=== PATIENT | female | born 1960 | race Caucasian/White ===

== ENCOUNTER → 2019-12-11 10:51 | Outpatient (BNVA) | payer SELFPAY | PROVIDERS: Family Provider Nurse Practitioner Family; PCP Emergency Medicine; Visit Provider Nurse Practitioner Family | DX: I10 Essential (primary) hypertension (principal) | CPT/HCPCS: 80048; 84443 ==

== ENCOUNTER → 2020-05-07 09:35 | Outpatient (BNVA) | payer SELFPAY | PROVIDERS: Family Provider Nurse Practitioner Family; PCP Family Medicine; Visit Provider Nurse Practitioner Family | DX: M54.5 Low back pain (principal); N30.00 Acute cystitis without hematuria | CPT/HCPCS: 80053; 81000; 87077; 87086; 87186 ==

== ENCOUNTER 2020-12-14 17:23 | Outpatient (CLI) | payer OTHER, SELFPAY | END 2020-12-14 17:24 | disposition home or self-care (01) | LOC: LAB 10-16 10:50 | PROVIDERS: PCP Family Medicine; Visit Provider Emergency Medicine | DX: M54.5 Low back pain (principal); R10.9 Unspecified abdominal pain | CPT/HCPCS: 80048; 81000; 85025; 87086 ==

== ENCOUNTER → 2022-11-09 09:09 | Outpatient (BNVA) | payer OTHER, SELFPAY | PROVIDERS: PCP Family Medicine; Visit Provider Emergency Medicine | DX: N30.00 Acute cystitis without hematuria (principal); R11.0 Nausea | CPT/HCPCS: 81000 ==

== ENCOUNTER → 2022-11-15 09:18 | Outpatient (BNVA) | payer OTHER, SELFPAY | PROVIDERS: PCP Family Medicine; Visit Provider Emergency Medicine | DX: N30.01 Acute cystitis with hematuria (principal) | CPT/HCPCS: 87077; 87086; 87184 ==

== ENCOUNTER → 2023-01-08 13:26 | Outpatient (BNVA) | payer OTHER, SELFPAY | PROVIDERS: PCP Family Medicine; Visit Provider Podiatrist Foot & Ankle Surgery | DX: M79.671 Pain in right foot (principal); L84 Corns and callosities; M79.2 Neuralgia and neuritis, unspecified | CPT/HCPCS: 73630 ==